=== PATIENT | male | born 2005 | race Hispanic/Latino ===

== ENCOUNTER 2023-07-25 18:25 | Emergency (ER) | payer OTHER ==
[~2023-07-25] VITALS: Ht 177.8 cm; Wt 99.8 kg
[2023-07-25 18:31] VITALS: BP 122/70; PULSE 100; RESP 16; O2SAT 96
[2023-07-25] MEDS ORDERED: LIDOCAINE HCL 1% 20 ML VIAL ONE (20:12)
[2023-07-25] MEDS ORDERED: LIDOCAINE HCL 1% 20 ML VIAL INJ SCH (20:30)
== END 2023-07-25 20:40 | disposition home or self-care (01) ==
LOC: EDH 18:25
DX: L60.0 Ingrowing nail (principal)
CPT/HCPCS: 11730